=== PATIENT | male | born 1990 | race Caucasian/White ===

== ENCOUNTER 2025-05-04 18:28 | Inpatient (IN) | payer BC, SELFPAY ==
[2025-05-04 19:04] VITALS: BP 118/76; PULSE 86; RESP 18; TEMP 36.3; O2SAT 99
--- NOTE | 2025-05-04 19:16 | PC.NURSE ---
Patient, 34 year old male, arrived to the unit at 18:50 via stretcher, from [facility]. Admitted for acute psychotic paranoia. Skin check completed; pt has scratches on lower extremities, feet and buttocks. VS upon arrival; T 97.3, P 86, BP 118/76, O2sat 99% on RA. Alert, oriented x4, pleasant, calm and cooperative. Ambulates independently. Legal status CV. Pt oriented to the unit and to his room.
[2025-05-04 19:39] VITALS: BMI 22.8
--- NOTE | 2025-05-05 03:33 | PC.ADMIT ---
Pt arrived to at the end of the firts shift. According to RN's note who accepted him, he ia a 34 year old male, arrived to the unit on 05/04/2025 at 18:50 from [facility]. Admitted for acute psychotic paranoia. Skin check completed; pt has scratches on lower extremities, feet and buttocks. VS were WNL upon arrival. Alert, oriented x4, pleasant, calm and cooperative. Ambulates independently. Legal status CV. Pt oriented to the unit and to his room. Later, with TW patient completed admission paperwork. He was pleasant and appropriate. He only complained of anxiety and asked for meds to help him sleep. He denied current SI/HI/AVH. Stated that he had lack of sleep lately, and was paranoid in the community. 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 He has a good relationship with mother who recently moved from [place] to [place]. Pt reported that he was driving from [place] to [place] to live with his mother. When he arrived to [place], he began to have paranoid thoughts . He parked his car on the street, exited his car, and fled through [facility] and lost his wallet, keys, and shoes. Pt began knocking on random doors asking for help. NFD and EMS arrived on the scene and client was taken to [facility] ED. Pt reported to Crisis that he was recently discharged from [facility] where he was admitted for similar experience. Refer to Care Team Assessment for more details.
[2025-05-05 08:00] VITALS: BP 107/65; PULSE 110; RESP 18; TEMP 35.6; O2SAT 96
[2025-05-05 08:03] LABS: Alanine Aminotransferase 34 U/L (0-40); Albumin Level 4.5 g/dL (3.5-5.0); Alkaline Phosphatase 75 U/L (39-117); Anion Gap 14 (12-20); Aspartate Amino Transferase 42 U/L (5-37); Blood Urea Nitrogen 10 mg/dL (9-16); Calcium 9.1 mg/dL (8.4-10.2); Carbon Dioxide 26 mmol/L (22-29); Chloride 104 mmol/L (96-108); Cholesterol 175 mg/dL (<200); Creatinine Clr Calc Pharmacy 109.7; Estimated Glomerular Filt Rate > 60; HDL Cholesterol 29 mg/dL (>40); Potassium 3.6 mmol/L (3.3-5.1); Sodium 140 mmol/L (135-145); Total Protein 6.9 g/dL (6.5-8.0); Triglycerides 118 mg/dL (<150)
[2025-05-05 08:18] LABS: Free T4 (Free Thyroxine) 1.19 ng/dL (0.71-1.85); Thyroid Stimulating Hormone 0.78 uIU/mL (0.32-4.0)
[2025-05-05] MEDS: Nicotine 21 MG PATCH.TD24 TRANSDERMA (08:37)
--- NOTE | 2025-05-05 08:48 | P.HPPS_ITS ---
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 He denies suicidal - Energy is low when doesn't sleep , denies high energy or risk taking behaviors- Past Psychiatric History: [place] retreat last month similar scenario- Medical Evaluation Reviewed: Hospitalist Yesenia Pending [facility] Narrative: WPW- hx metoprolol none in years no medications Social History: no hx violence, or trauma, though dad when patient was 11 yo, parents when he was 3-4 yo and he is not close with his brother ( a nurse maybe in [place]) mom is a nurse , no significant others or close friends Substance History: hx etoh now only occasional - occasional not regular mj use Diagnostics Vital Signs (24Hr): Vital Signs - 24 hr 05/04/25 19:04 05/05/25 08:00 Temperature 97.3 F 96.1 F L Pulse Rate 86 110 H Respiratory Rate 18 18 Blood Pressure 118/76 107/65 Pulse Oximetry 99 96 Oxygen Delivery Method Room Air Room Air BMI result Body Mass Index 22.8 Labs 05/05/25 07:34 Labs: Laboratory Results - last 48 hr 05/05/25 07:34 Sodium 140 Potassium 3.6 Chloride 104 Carbon Dioxide 26 Anion Gap 14 BUN 10 Creatinine 0.93 Estim Creat Clear Calc 109.7 Estimated GFR > 60 Random Glucose 98 Calcium 9.1 Total Bilirubin 1.1 H AST 42 H ALT 34 Alkaline Phosphatase 75 Total Protein 6.9 Albumin 4.5 Triglycerides 118 Cholesterol 175 LDL Cholesterol, Calc 123 H HDL Cholesterol 29 L TSH 0.78 Free T4 1.19 Meds/Allergies Meds Home Medications ?Medication ?Instructions ?Recorded ?Confirmed ?Type No Known Home Meds 05/04/25 05/04/25 Hi story Allergies Allergies Allergy/AdvReac Type Severity Reaction Status Date / Time Penicillins Allergy Unknown Verified 05/04/25 20:05 Mental Status Exam Mental Status Exam Narrative: playing with deck of cards, later walking halls also holding/shuffling deck of cards Patient Appearance: Well Grooomed and Appropriate Patient Orientation: Person, Place, Time and Situation Level of Consciousness: Awake Patient Behavior: Appropriate, Cooperative and Good Eye Contact Mood Description: Anxious Affect Description: Constricted Patient Cognition Impaired: No Ability to Follow Directions: Good Speech Pattern: Clear Hallucinations: None Delusions: Paranoid Ideation (though denying now...) Thought Process: Intact Thought Content: positive for Intact and positive for Goal Oriented Depressive Symptoms: Increased Anxiety (identifies as stress ') Judgement: Fair Assessment & Plan Assessment & Plan (1) Brief psychotic disorder: Status: Acute Code(s): F23 - Brief psychotic disorder Plan possible brief psychosis brought on by stress/sleep disruption- maybe mj use patient not intereted in medications- would like to regularize sleep and see how he does- plan for trip to [place] to be closer to mother and 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 No changes have occurred unless specified. If the History and Physical was not performed prior to admission, the Hospitalist's service will be consulted for completing the admission physical. Time Spent With Patient Time: Total time managing care of this patient today ____ minutes.
[2025-05-05 11:16] LABS: Hemoglobin A1C 125.9070 umol/L; Total Hemoglobin (HGBA1C) 3927.1628 umol/L
--- NOTE | 2025-05-05 15:36 | HO.HSGERICON ---
History of Present Illness Data of Consult Service Date: 05/05/25 Primary Care Provider: None Physician HPI Reason for consult: hpi 34M PMH mood disorder admitted to inpatient psychiatry. notes that 2 days prior to admission he jumped over fence and cut his feet. no fevers, scratches healing, mild erythema, but no overt cellulitis. Review of Systems Review of Systems: Yes all other systems are reviewed and are negative [facility] Social History Household Members: None Housing: Homeless Do you presently have visiting nurse or other home services: No Patient Tobacco Use Status: Current everyday Tobacco user Tobacco use type: Cigarette Smoked in Last 30 Days: Yes Patient Interested in Nicotine Replacement: No Patient Given Instructions on How to Stop Smoking: No (declined) Currently Displaying Signs/Symptoms of Drug Intoxication Withdrawal: No Have you been hit, kicked, punched, or otherwise hurt by someone within the past year? If so, by whom?: No Do you feel safe in your current relationship?: No Current Relationship Is there a partner from a previous relationship who is making you feel unsafe now?: No Are you made to feel afraid or neglected: No Advance Directives: No Advance Directives Information Provided: No Do you have thoughts of harming others: None Do you have a plan to hurt others: No Plan Recently lost weight without trying: No Nutrition Risks: No Nutritional Risk Poor oral hygiene: No Meds Allergies Allergy/AdvReac Type Severity Reaction Status Date / Time Penicillins Allergy Unknown Verified 05/04/25 20:05 Active Medications: Current Medications Acetaminophen (Acetaminophen 325 Mg Tablet) 650 mg PO Q6H PRN PRN Reason: Headache/Pain, Scale 1-10 Last Admin: 05/05/25 09:26 Dose: 650 mg Al Hydroxide/Mg Hydroxide (Magnesium Hydrox/Alum Hydrox 30 Ml Oral.Susp) 30 ml PO Q6H PRN PRN Reason: Heartburn/Nausea Hydroxyzine HCl (Hydroxyzine Hcl 50 Mg Tablet) 50 mg PO Q6H PRN PRN Reason: mild anxiety Last Admin: 05/05/25 12:31 Dose: 50 mg Magnesium Hydroxide (Milk Of Magnesia 30 Ml Oral.Susp) 30 ml PO DAILY PRN PRN Reason: Constipation Nicotine (Nicotine 21 Mg Patch.Td24) 21 mg TRANSDERMA DAILY PRN PRN Reason: nicotine craving Last Admin: 05/05/25 08:37 Dose: 21 mg Nicotine Polacrilex (Nicotine Polacrilex 2 Mg Gum) 2 mg BUCCAL Q2H PRN PRN Reason: Nicotine Cravings Last Admin: 05/05/25 12:30 Dose: 2 mg Olanzapine (Olanzapine 5 Mg Tablet) 5 mg PO BID PRN PRN Reason: agitation Trazodone HCl (Trazodone Hcl 50 Mg Tablet) 50 mg PO BEDTIME MRX1 PRN PRN Reason: Insomnia Last Admin: 05/04/25 21:54 Dose: 50 mg Home Medications ?Medication ?Instructions ?Recorded ?Confirmed ?Last Taken ?Type No Known Home Meds 05/04/25 05/04/25 Unknown History Results Labs 05/05/25 07:34 Labs: Laboratory Results - last 24 hr 05/05/25 07:34 Anion Gap 14 Estim Creat Clear Calc 109.7 Estimated GFR > 60 Random Glucose 98 Estimat Average Glucose 100 Hemoglobin A1c % 5.1 Calcium 9.1 Total Bilirubin 1.1 H AST 42 H ALT 34 Alkaline Phosphatase 75 Total Protein 6.9 Albumin 4.5 Triglycerides 118 Cholesterol 175 LDL Cholesterol, Calc 123 H HDL Cholesterol 29 L TSH 0.78 Free T4 1.19 Assessment and Plan (1) Laceration of foot: Status: Acute Plan 34M PMH mood disorder admitted to inpatient psychiatry, complaining of bilateral foot lacerations bilateral foot lacerations topical bacitracin montior for worsening erythema Physical Exam Vital Signs: Last Vital Signs Temp 96.1 F L 05/05/25 08:00 Pulse 110 H 05/05/25 08:00 Resp 18 05/05/25 08:00 BP 107/65 05/05/25 08:00 Pulse Ox 96 05/05/25 08:00 O2 Del Method Room Air 05/05/25 08:00 BMI result Body Mass Index 22.8 scratches on both feet, no open wounds, mild erythema, no swelling Neuro Cranial nerves: Yes CN's II-XII intact bilaterally
[2025-05-05 20:00] VITALS: BP 127/67; PULSE 78; RESP 15; TEMP 35.7; O2SAT 100
[2025-05-06 08:00] VITALS: BP 117/70; PULSE 97; RESP 18; TEMP 36.1; O2SAT 99
--- NOTE | 2025-05-06 10:42 | P.PNPSI_ITS ---
Subjective Subjective Date of Service: 05/06/25 Reason For Visit: SI Subjective Notes: Conditional Voluntary Healthcare Proxy: No Guardianship: No Medical Problems Affecting Mental Status: No Interim History: 34 yo WM reports he is doing ok, did sleep , doesn't want medications- hoping to go to [place]=- did seem somewhat vague and mildly paranoid today- denies si/hi/ah- still believes they might have been after him- seems to be sitting apart from group of peers (though it is a large group gathered Continues to play with deck of cards, though reports knowing no card games denies gambling Medication Compliance: No (not agreeing to meds) Attending Groups: Intermittent Review of Systems Acute medical concerns: No Medical Review of Systems: unchanged Review of Systems: still tired from stress and not sleeping Mental Status Exam Mental Status Exam Patient Appearance: Appropriate Patient Orientation: Person, Place, Time and Situation Level of Consciousness: Awake and Alert Patient Behavior: Appropriate, Cooperative and Passive Mood Description: Anxious and Apprehensive Affect Description: Blunted Patient Cognition Impaired: No Ability to Follow Directions: Good Speech Pattern: Clear Hallucinations: None Delusions: Present Thought Process: Intact and Goal Oriented Thought Content: positive for Preoccupation Depressive Symptoms: Loss of Energy Judgement: Fair Diagnostics Vital Signs (24Hr): Vital Signs - 24 hr 05/05/25 20:00 05/06/25 08:00 Temperature 96.2 F L 96.9 F Pulse Rate 78 97 Respiratory Rate 15 18 Blood Pressure 127/67 117/70 Pulse Oximetry 100 99 Oxygen Delivery Method Room Air BMI result Body Mass Index 22.8 Labs 05/05/25 07:34 Labs: Laboratory Results - last 48 hr 05/05/25 07:34 Sodium 140 Potassium 3.6 Chloride 104 Carbon Dioxide 26 Anion Gap 14 BUN 10 Creatinine 0.93 Estim Creat Clear Calc 109.7 Estimated GFR > 60 Random Glucose 98 Estimat Average Glucose 100 Hemoglobin A1c % 5.1 Calcium 9.1 Total Bilirubin 1.1 H AST 42 H ALT 34 Alkaline Phosphatase 75 Total Protein 6.9 Albumin 4.5 Triglycerides 118 Cholesterol 175 LDL Cholesterol, Calc 123 H HDL Cholesterol 29 L TSH 0.78 Free T4 1.19 Medications Medications Current Medications Acetaminophen (Acetaminophen 325 Mg Tablet) 650 mg PO Q6H PRN PRN Reason: Headache/Pain, Scale 1-10 Last Admin: 05/05/25 09:26 Dose: 650 mg Al Hydroxide/Mg Hydroxide (Magnesium Hydrox/Alum Hydrox 30 Ml Oral.Susp) 30 ml PO Q6H PRN PRN Reason: Heartburn/Nausea Bacitracin (Bacitracin Oint 14 Gm Tube) 1 appl TOPICAL BID KARI; Protocol Last Admin: 05/06/25 08:35 Dose: 1 appl Hydroxyzine HCl (Hydroxyzine Hcl 50 Mg Tablet) 50 mg PO Q6H PRN PRN Reason: mild anxiety Last Admin: 05/05/25 12:31 Dose: 50 mg Magnesium Hydroxide (Milk Of Magnesia 30 Ml Oral.Susp) 30 ml PO DAILY PRN PRN Reason: Constipation Nicotine (Nicotine 21 Mg Patch.Td24) 21 mg TRANSDERMA DAILY PRN PRN Reason: nicotine craving Last Admin: 05/05/25 08:37 Dose: 21 mg Nicotine Polacrilex (Nicotine Polacrilex 2 Mg Gum) 2 mg BUCCAL Q2H PRN PRN Reason: Nicotine Cravings Last Admin: 05/05/25 12:30 Dose: 2 mg Olanzapine (Olanzapine 5 Mg Tablet) 5 mg PO BID PRN PRN Reason: agitation Trazodone HCl (Trazodone Hcl 50 Mg Tablet) 50 mg PO BEDTIME MRX1 PRN PRN Reason: Insomnia Last Admin: 05/04/25 21:54 Dose: 50 mg Allergies Allergies Allergy/AdvReac Type Severity Reaction Status Date / Time Penicillins Allergy Unknown Verified 05/04/25 20:05 Assessment & Plan Assessment & Plan (1) Brief psychotic disorder: Status: Acute Code(s): F23 - Brief psychotic disorder Plan possible brief psychosis brought on by stress/sleep disruption- maybe mj use patient not intereted in medications- would like to regularize sleep and see how he does- plan for trip to [place] to be closer to mother and 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
[2025-05-06 20:00] VITALS: BP 121/70; PULSE 83; RESP 15; TEMP 35.7; O2SAT 100
[2025-05-07 08:00] VITALS: BP 112/65; PULSE 73; RESP 14; TEMP 35.7; O2SAT 99
--- NOTE | 2025-05-07 09:57 | P.PNPSI_ITS ---
Subjective Subjective Date of Service: 05/07/25 Reason For Visit: SI Subjective Notes: Conditional Voluntary Healthcare Proxy: No Guardianship: No Medical Problems Affecting Mental Status: No Interim History: Reports sleeping well, denies sx of AH,VH, SI, HI, paranoia. Denies the need for medications. I will need to leave soon to return to [place] Medication Compliance: No Side effects from medications: No Attending Groups: No Review of Systems Acute medical concerns: No Medical Review of Systems: unchanged Review of Systems Review of Systems Denies Mental Status Exam Mental Status Exam Patient Appearance: Appropriate Patient Orientation: Person, Place, Time and Situation Level of Consciousness: Alert Patient Behavior: Guarded and Talkative Mood Description: Constricted Affect Description: Constricted Patient Cognition Impaired: No Ability to Follow Directions: Good Speech Pattern: Spontaneous Speech Memory Description: Intact Hallucinations: None Delusions: Paranoid Ideation and Present Perceptual Disturbances: Depersonalization Thought Process: Distracted and Goal Oriented Thought Content: positive for Perseveration, positive for Preoccupation, positive for Thought Blocking (???) and positive for Suicidal Ideation (denies) Depressive Symptoms: Diff. Making Decisions and Thoughts of /Suicide (denies) Judgement: Fair Diagnostics Vital Signs (24Hr): Vital Signs - 24 hr 05/06/25 20:00 05/07/25 08:00 Temperature 96.2 F L 96.3 F L Pulse Rate 83 73 Respiratory Rate 15 14 Blood Pressure 121/70 112/65 Pulse Oximetry 100 99 Oxygen Delivery Method Room Air BMI result Body Mass Index 22.8 Labs 05/05/25 07:34 Labs: Laboratory Results - last 48 hr 05/05/25 07:34 Estimat Average Glucose 100 Hemoglobin A1c % 5.1 Medications Medications Current Medications Acetaminophen (Acetaminophen 325 Mg Tablet) 650 mg PO Q6H PRN PRN Reason: Headache/Pain, Scale 1-10 Last Admin: 05/05/25 09:26 Dose: 650 mg Al Hydroxide/Mg Hydroxide (Magnesium Hydrox/Alum Hydrox 30 Ml Oral.Susp) 30 ml PO Q6H PRN PRN Reason: Heartburn/Nausea Bacitracin (Bacitracin Oint 14 Gm Tube) 1 appl TOPICAL BID KARI; Protocol Last Admin: 05/07/25 09:54 Dose: Not Given Hydroxyzine HCl (Hydroxyzine Hcl 50 Mg Tablet) 50 mg PO Q6H PRN PRN Reason: mild anxiety Last Admin: 05/05/25 12:31 Dose: 50 mg Magnesium Hydroxide (Milk Of Magnesia 30 Ml Oral.Susp) 30 ml PO DAILY PRN PRN Reason: Constipation Nicotine (Nicotine 21 Mg Patch.Td24) 21 mg TRANSDERMA DAILY PRN PRN Reason: nicotine craving Last Admin: 05/05/25 08:37 Dose: 21 mg Nicotine Polacrilex (Nicotine Polacrilex 2 Mg Gum) 2 mg BUCCAL Q2H PRN PRN Reason: Nicotine Cravings Last Admin: 05/05/25 12:30 Dose: 2 mg Olanzapine (Olanzapine 5 Mg Tablet) 5 mg PO BID PRN PRN Reason: agitation Trazodone HCl (Trazodone Hcl 50 Mg Tablet) 50 mg PO BEDTIME MRX1 PRN PRN Reason: Insomnia Last Admin: 05/04/25 21:54 Dose: 50 mg Allergies Allergies Allergy/AdvReac Type Severity Reaction Status Date / Time Penicillins Allergy Unknown Verified 05/04/25 20:05 Assessment & Plan Assessment & Plan (1) Brief psychotic disorder: Status: Acute Code(s): F23 - Brief psychotic disorder Plan possible brief psychosis brought on by stress/sleep disruption- maybe mj use patient not intereted in medications- would like to regularize sleep and see how he does- plan for trip to [place] to be closer to mother and 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
[2025-05-07 19:49] VITALS: BP 107/62; PULSE 72; TEMP 36.2; O2SAT 98
--- NOTE | 2025-05-08 06:04 | HO.PSYCHPN ---
Subjective Subjective Date of Service: 05/08/25 Reason For Visit: SI Subjective Notes: Conditional Voluntary and 3 Day Healthcare Proxy: No Guardianship: No Medical Problems Affecting Mental Status: No Interim History: Filed a three day notice of intent. Discussed needing collateral contact to plan discharge, complete safety eval. Requested pt sign MOY for his mother and [facility] DC summary. He declined, then agreed and signed. 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 He reports his court date was last week and this was resolved. Discussed needing to have collateral, clarity of this incident and contact with family to plan a safe DC. Pt believes mother will come from [place] to return with him. He plans to continue OP treatment in [place]. Medication Compliance: No Side effects from medications: No Attending Groups: No Review of Systems Acute medical concerns: No Review of Systems Review of Systems Denies Mental Status Exam Mental Status Exam Patient Appearance: Appropriate Patient Orientation: Person, Place, Time and Situation Level of Consciousness: Alert Patient Behavior: Guarded and Talkative Mood Description: Constricted Affect Description: Constricted Patient Cognition Impaired: No Ability to Follow Directions: Good Speech Pattern: Spontaneous Speech Memory Description: Intact Hallucinations: None Delusions: Paranoid Ideation and Present Perceptual Disturbances: Depersonalization Thought Process: Distracted and Goal Oriented Thought Content: positive for Perseveration, positive for Preoccupation, positive for Thought Blocking (???) and positive for Suicidal Ideation (denies) Depressive Symptoms: Diff. Making Decisions and Thoughts of /Suicide (denies) Judgement: Fair Diagnostics Vital Signs (24Hr): Vital Signs - 24 hr 05/07/25 08:00 05/07/25 19:49 Temperature 96.3 F L 97.1 F Pulse Rate 73 72 Respiratory Rate 14 Blood Pressure 112/65 107/62 Pulse Oximetry 99 98 Oxygen Delivery Method Room Air Room Air BMI result Body Mass Index 22.8 Labs 05/05/25 07:34 Medications Medications Current Medications Acetaminophen (Acetaminophen 325 Mg Tablet) 650 mg PO Q6H PRN PRN Reason: Headache/Pain, Scale 1-10 Last Admin: 05/05/25 09:26 Dose: 650 mg Al Hydroxide/Mg Hydroxide (Magnesium Hydrox/Alum Hydrox 30 Ml Oral.Susp) 30 ml PO Q6H PRN PRN Reason: Heartburn/Nausea Bacitracin (Bacitracin Oint 14 Gm Tube) 1 appl TOPICAL BID KARI; Protocol Last Admin: 05/07/25 20:22 Dose: 1 appl Hydroxyzine HCl (Hydroxyzine Hcl 50 Mg Tablet) 50 mg PO Q6H PRN PRN Reason: mild anxiety Last Admin: 05/05/25 12:31 Dose: 50 mg Magnesium Hydroxide (Milk Of Magnesia 30 Ml Oral.Susp) 30 ml PO DAILY PRN PRN Reason: Constipation Nicotine (Nicotine 21 Mg Patch.Td24) 21 mg TRANSDERMA DAILY PRN PRN Reason: nicotine craving Last Admin: 05/05/25 08:37 Dose: 21 mg Nicotine Polacrilex (Nicotine Polacrilex 2 Mg Gum) 2 mg BUCCAL Q2H PRN PRN Reason: Nicotine Cravings Last Admin: 05/05/25 12:30 Dose: 2 mg Olanzapine (Olanzapine 5 Mg Tablet) 5 mg PO BID PRN PRN Reason: agitation Trazodone HCl (Trazodone Hcl 50 Mg Tablet) 50 mg PO BEDTIME MRX1 PRN PRN Reason: Insomnia Last Admin: 05/04/25 21:54 Dose: 50 mg Allergies Allergies Allergy/AdvReac Type Severity Reaction Status Date / Time Penicillins Allergy Unknown Verified 05/04/25 20:05 Assessment & Plan Assessment & Plan (1) Brief psychotic disorder: Status: Acute Code(s): F23 - Brief psychotic disorder Plan possible brief psychosis brought on by stress/sleep disruption- maybe mj use patient not intereted in medications- would like to regularize sleep and see how he does- plan for trip to [place] to be closer to mother and 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 Reason for continued inpatient stay Substantial Risk for: rapid decompensation Time Spent With Patient Time: Total time managing care of this patient today ____ minutes.
[2025-05-08 08:00] VITALS: BP 112/64; PULSE 77; RESP 16; TEMP 521.6; TEMP 971; O2SAT 98
--- NOTE | 2025-05-08 16:20 | PC.NURSE ---
3 day requested and filled out by Broderick with [facility].
[2025-05-08 20:00] VITALS: BP 114/66; PULSE 60; RESP 18; TEMP 36.4; O2SAT 99
[2025-05-09 08:00] VITALS: BP 112/63; PULSE 61; TEMP 36.9; O2SAT 97
--- NOTE | 2025-05-09 11:30 | P.PNPSI_ITS ---
Subjective Subjective Date of Service: 05/09/25 Reason For Visit: SI Subjective Notes: Conditional Voluntary and 3 Day Interim History: Patient states that he feels happy and ready to go home to his mom on Wednesday. He is anxious because he is here. He denies depression. Denies paranoia. He denies SI/HI/AH/VH. This provider and patient's social and human services assistant spoke with the patient's mother on the phone this morning. Mom is the nurse who lives in [place]. She notes that she received the call from the deputy that the patient had paranoid thoughts about someone after him. Mom states that the patient had not slept for several days due to his busy work schedule. She added that the patient is usually private and guarded. She believes his recent symptoms were stress induced. 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 Medication Compliance: Intermittent Side effects from medications: No Attending Groups: Intermittent Review of Systems Acute medical concerns: No Mental Status Exam Mental Status Exam Narrative: Appearance: Casually dressed, adequate hygiene Behavior: Calm and cooperative throughout the interview. Eye contact is appropriate, and there are no signs of psychomotor agitation or retardation Speech: Normal volume and prosody Thought process: Logical and goal-directed Thought content: Future oriented no self-harming thoughts Mood: Euthymic Affect: Constricted SI:denies HI:denies VH/AH:none Delusions: None Insight/judgment: Fair insight and judgment Memory/cog: Alert, oriented x 4. grossly intact to conversational testing Diagnostics Vital Signs (24Hr): Vital Signs - 24 hr 05/08/25 20:00 Temperature 97.6 F Pulse Rate 60 Respiratory Rate 18 Blood Pressure 114/66 Pulse Oximetry 99 Oxygen Delivery Method Room Air BMI result Body Mass Index 22.8 Labs 05/05/25 07:34 Medications Medications Current Medications Acetaminophen (Acetaminophen 325 Mg Tablet) 650 mg PO Q6H PRN PRN Reason: Headache/Pain, Scale 1-10 Last Admin: 05/05/25 09:26 Dose: 650 mg Al Hydroxide/Mg Hydroxide (Magnesium Hydrox/Alum Hydrox 30 Ml Oral.Susp) 30 ml PO Q6H PRN PRN Reason: Heartburn/Nausea Bacitracin (Bacitracin Oint 14 Gm Tube) 1 appl TOPICAL BID [facility]; Protocol Last Admin: 05/09/25 09:19 Dose: Not Given Hydroxyzine HCl (Hydroxyzine Hcl 50 Mg Tablet) 50 mg PO Q6H PRN PRN Reason: mild anxiety Last Admin: 05/05/25 12:31 Dose: 50 mg Magnesium Hydroxide (Milk Of Magnesia 30 Ml Oral.Susp) 30 ml PO DAILY PRN PRN Reason: Constipation Nicotine (Nicotine 21 Mg Patch.Td24) 21 mg TRANSDERMA DAILY PRN PRN Reason: nicotine craving Last Admin: 05/05/25 08:37 Dose: 21 mg Nicotine Polacrilex (Nicotine Polacrilex 2 Mg Gum) 2 mg BUCCAL Q2H PRN PRN Reason: Nicotine Cravings Last Admin: 05/05/25 12:30 Dose: 2 mg Olanzapine (Olanzapine 5 Mg Tablet) 5 mg PO BID PRN PRN Reason: agitation Trazodone HCl (Trazodone Hcl 50 Mg Tablet) 50 mg PO BEDTIME MRX1 PRN PRN Reason: Insomnia Last Admin: 05/04/25 21:54 Dose: 50 mg Allergies Allergies Allergy/AdvReac Type Severity Reaction Status Date / Time Penicillins Allergy Unknown Verified 05/04/25 20:05 Assessment & Plan Assessment & Plan (1) Brief psychotic disorder: Status: Acute Code(s): F23 - Brief psychotic disorder Plan possible brief psychosis brought on by stress/sleep disruption- maybe mj use patient not intereted in medications- would like to regularize sleep and see how he does- plan for 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 05/09/25: Patient states that he feels happy and ready to go home to his mom on Wednesday. He is anxious because he is here. He denies depression. Denies paranoia. He denies SI/HI/AH/VH. Continue current treatment plan reviewed. He will be discharged in the care of his mom on 05/11/2025. Patient educated on: therapeutic strategies Guardian/Caregiver educated on: therapeutic strategies Reason for continued inpatient stay Substantial Risk for: rapid decompensation Time Spent With Patient Time: Total time managing care of this patient today ____ minutes.
[2025-05-09 20:00] VITALS: BP 101/58; PULSE 60; TEMP 36.1; O2SAT 98
[2025-05-10 07:00] VITALS: BMI 23.2
[2025-05-10 08:00] VITALS: BP 118/65; PULSE 75; RESP 16; TEMP 36.2; O2SAT 97
--- NOTE | 2025-05-10 10:21 | HO.PSYCHPN ---
Subjective Subjective Date of Service: 05/10/25 Reason For Visit: SI Subjective Notes: Conditional Voluntary and 3 Day Healthcare Proxy: No Guardianship: No Medical Problems Affecting Mental Status: No Interim History: Broderick denies SI,HI,AH,VH. There are no acute sx of mamadou or psychosis. He reports adequate appetite and sleep, denies all other sx. He is pleased to discharge on 05/11 and feels comfortable that his mother is coming from [place] to accompany him to his home. He continues to decline medications. His mother has asked the team to provide hydroxyzine prn for travel anxiety which we will order in the a.m. Medication Compliance: No Side effects from medications: No Attending Groups: No Review of Systems Acute medical concerns: No Review of Systems Review of Systems Denies Mental Status Exam Mental Status Exam Patient Appearance: Appropriate Patient Orientation: Person, Place, Time and Situation Level of Consciousness: Alert Patient Behavior: Talkative and Good Eye Contact Mood Description: Calm and Withdrawn Affect Description: Calm and Withdrawn Patient Cognition Impaired: No Ability to Follow Directions: Good Speech Pattern: Spontaneous Speech Memory Description: Episodic Impaired Hallucinations: None (denies) Delusions: Not Present Thought Process: Distracted Thought Content: positive for Circumstantial Judgement: Fair Diagnostics Vital Signs (24Hr): Vital Signs - 24 hr 05/09/25 20:00 Temperature 96.9 F Pulse Rate 60 Blood Pressure 101/58 L Pulse Oximetry 98 Oxygen Delivery Method Room Air BMI result Body Mass Index 22.8 Labs 05/05/25 07:34 Medications Medications Current Medications Acetaminophen (Acetaminophen 325 Mg Tablet) 650 mg PO Q6H PRN PRN Reason: Headache/Pain, Scale 1-10 Last Admin: 05/05/25 09:26 Dose: 650 mg Al Hydroxide/Mg Hydroxide (Magnesium Hydrox/Alum Hydrox 30 Ml Oral.Susp) 30 ml PO Q6H PRN PRN Reason: Heartburn/Nausea Bacitracin (Bacitracin Oint 14 Gm Tube) 1 appl TOPICAL BID [facility]; Protocol Last Admin: 05/09/25 20:49 Dose: Not Given Hydroxyzine HCl (Hydroxyzine Hcl 50 Mg Tablet) 50 mg PO Q6H PRN PRN Reason: mild anxiety Last Admin: 05/05/25 12:31 Dose: 50 mg Magnesium Hydroxide (Milk Of Magnesia 30 Ml Oral.Susp) 30 ml PO DAILY PRN PRN Reason: Constipation Nicotine (Nicotine 21 Mg Patch.Td24) 21 mg TRANSDERMA DAILY PRN PRN Reason: nicotine craving Last Admin: 05/05/25 08:37 Dose: 21 mg Nicotine Polacrilex (Nicotine Polacrilex 2 Mg Gum) 2 mg BUCCAL Q2H PRN PRN Reason: Nicotine Cravings Last Admin: 05/05/25 12:30 Dose: 2 mg Olanzapine (Olanzapine 5 Mg Tablet) 5 mg PO BID PRN PRN Reason: agitation Trazodone HCl (Trazodone Hcl 50 Mg Tablet) 50 mg PO BEDTIME MRX1 PRN PRN Reason: Insomnia Last Admin: 05/04/25 21:54 Dose: 50 mg Allergies Allergies Allergy/AdvReac Type Severity Reaction Status Date / Time Penicillins Allergy Unknown Verified 05/04/25 20:05 Assessment & Plan Assessment & Plan (1) Brief psychotic disorder: Status: Acute Code(s): F23 - Brief psychotic disorder Plan possible brief psychosis brought on by stress/sleep disruption- maybe mj use patient not intereted in medications- would like to regularize sleep and see how he does- plan for trip to [place] to be closer to mother 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 05/09/25: Patient states that he feels happy and ready to go home to his mom on Wednesday. He is anxious because he is here. He denies depression. Denies paranoia. He denies SI/HI/AH/VH. Continue current treatment plan reviewed. He will be discharged in the care of his mom on 05/11/2025. 05/10/25: Continue tx. DC with mother on 05/11/25. Reason for continued inpatient stay Substantial Risk for: stable for discharge Time Spent With Patient Time: Total time managing care of this patient today ____ minutes.
[2025-05-10 20:00] VITALS: BP 100/63; PULSE 60; RESP 16; TEMP 36.5; O2SAT 99
[2025-05-11 08:00] VITALS: BP 110/62; PULSE 83; TEMP 36; O2SAT 96
--- NOTE | 2025-05-11 10:26 | PM.PSYDC ---
DS: Providers Provider Date of admission: 05/04/25 18:28 Primary care physician: None Physician Consults: 05/04/25 20:20 Consult to Hospitalist Routine Comment: Consulting Provider: [facility] Hospitalists Reason For Exam: New external admit- H&P DS: Diagnosis Discharge Diagnosis (1) Brief psychotic disorder: Status: Acute DS: Medications Discharge Medications Home Medications: Previous Rx's ?Medication ?Instructions ?Recorded hydroxyzine pamoate 50 mg capsule 50 mg PO BID PRN travel anxiety 05/11/25 #20 caps Data Data Completed and Pending Completed studies during hospitalization [Text1]: 05/05/25 07:34 Sodium 140 Potassium 3.6 Chloride 104 Carbon Dioxide 26 Anion Gap 14 BUN 10 Creatinine 0.93 Estim Creat Clear Calc 109.7 Estimated GFR > 60 Random Glucose 98 Estimat Average Glucose 100 Hemoglobin A1c % 5.1 Calcium 9.1 Total Bilirubin 1.1 H AST 42 H ALT 34 Alkaline Phosphatase 75 Total Protein 6.9 Albumin 4.5 Triglycerides 118 Cholesterol 175 LDL Cholesterol, Calc 123 H HDL Cholesterol 29 L TSH 0.78 Free T4 1.19 DS: Summary Time Spent with Patient Time attestation: Total time managing care of this patient today ____ minutes. Discharge Plan Discharge Anticipated Discharge Date/Time: 05/11/25 12:00 Patient Disposition: Home, Self-Care Discharge Diagnosis: psychosis Referrals: Physician,None [Primary Care Provider, Medical] - 1 Week Discharge Medications: New hydroxyzine pamoate 50 mg capsule 50 mg PO BID PRN (Reason: travel anxiety) Qty: 20 0RF Discharge Orders: Discharge Order (Routine); Ordered 05/11/25 Ordered By: Beverly Wilson Diet: Advance to usual diet Activity on Discharge: As tolerated Stand Alone Forms: Patient Portal Discharge page Print Language: Libyan Care Plan Goals: Mood and Behavioral Stabilization Health Concerns: Mood and Behavioral Stabilization Plan of Treatment: Discharge on a three day notice of intent. As pt was just released from [facility] prior to his admission at [facility], his mother has flown to [place] from the family home in [place] and will accompany pt to [place] where she will arrange ongoing treatment for him Assessment: Denies SI,HI,AH, VH No sx of acute mamadou or psychosis, however pt has refused all treatment during this admission and has remained guarded.
== END 2025-05-11 11:15 | disposition home or self-care (01) | DRG 885 ==
PROVIDERS: Nurse Practitioner Psychiatric/Mental Health; Admitting Provider Psychiatry & Neurology Psychiatry; Visit Provider Psychiatry & Neurology Psychiatry
DX: F23 Brief psychotic disorder (principal); F17.210 Nicotine dependence, cigarettes, uncomplicated; S91.312A Laceration without foreign body, left foot, initial encounter; S91.311A Laceration without foreign body, right foot, initial encounter; X58.XXXA Exposure to other specified factors, initial encounter; Z71.6 Tobacco abuse counseling
CPT/HCPCS: 36415; 80053; 80061; 83036; 84439; 84443

== ENCOUNTER → 2025-05-04 18:28 | Outpatient (BNV) | payer BC, SELFPAY | PROVIDERS: Admitting Provider Psychiatry & Neurology Psychiatry; Visit Provider Internal Medicine | DX: S91.319A Laceration without foreign body, unspecified foot, initial encounter (principal) | CPT/HCPCS: 99252 ==

== ENCOUNTER → 2025-05-04 18:28 | Outpatient (BNV) | payer BC, SELFPAY | PROVIDERS: Admitting Provider Psychiatry & Neurology Psychiatry; Visit Provider Psychiatry & Neurology Psychiatry | DX: F23 Brief psychotic disorder (principal) | CPT/HCPCS: 90792 ==